=== PATIENT | male | born 1970 | race Hispanic/Latino ===

== ENCOUNTER → 2018-06-20 | Outpatient (CLI) | payer MEDICARE | END | disposition home or self-care (01) | LOC: RAH 08:25 | PROVIDERS: ATTEND Internal Medicine Cardiovascular Disease | DX: I11.9 Hypertensive heart disease without heart failure (principal); I31.3 Pericardial effusion (noninflammatory); Z94.0 Kidney transplant status | CPT/HCPCS: 93306 ==

== ENCOUNTER 2023-11-29 07:30 | Day surgery (SDC) | payer MEDICARE ==
[2023-11-27 09:55] LABS: HEMATOCRIT 33.2 % (42-54); MEAN CORPUSCULAR HEMOGLOBIN 31.1 pg (27.0-33.0); MEAN CORPUSCULAR HGB CONC 32.8 g/dL (32.0-36.0); MEAN CORPUSCULAR VOLUME 94.9 fL (79-99); RED BLOOD CELL COUNT(AUTO) 3.5 MIL/uL (4.50-6.20); RED CELL DISTRIBUTION WIDTH 14.3 % (11.0-15.5); WHITE BLOOD COUNT (AUTO) 5.9 K/uL (4.8-10.8)
[2023-11-27 09:57] VITALS: BP 175/82; PULSE 64; RESP 18
[2023-11-27 10:07] LABS: POTASSIUM 4.4 mmol/L (3.5-5.1)
[2023-11-27 10:09] LABS: CREATININE 9.4 mg/dL (0.5-1.3)
[2023-11-27 10:16] LABS: INR 1.01 (0.85-1.15); PROTHROMBIN TIME 11.9 SEC (9.6-11.6)
[2023-11-27 10:17] LABS: PARTIAL THROMBOPLASTIN TIME 27.7 SEC (26.3-35.5)
[2023-11-29] VITALS (20 sets, daily range): BP systolic 152–172; BP diastolic 71–81; PULSE 63–75; RESP 12–23
[~2023-11-29] VITALS: Ht 175.3 cm; Wt 103.0 kg
[~2023-11-29 07:30] MED LIST: AEC81 PO; ALBUHFA IH; FOLI1TAB85 PO; INSU500V SQ; LACT10SO5 PO; LORA10TA7 PO; METO-409 PO; NPH,100V SQ; PANT40TA54 PO; ROSU20TA73 PO; SEVE800T27 PO
[2023-11-29 08:10] LABS: CREATININE 6.7 mg/dL (0.5-1.3); POTASSIUM 4.6 mmol/L (3.5-5.1)
[2023-11-29] MEDS: CEFAZOLIN SODIUM 2 GM VIAL ONE (08:33)
[2023-11-29] MEDS: 0.9% NACL 500ML IV.SOLN 500 ML IV ONE (08:39)
[2023-11-29] MEDS ORDERED: FAMOTIDINE 20MG VIAL IV ONE (09:45)
[2023-11-29] MEDS ORDERED: ACETAMINOPHEN 1,000 MG/100 ML VIAL IV ONE (09:45)
[2023-11-29] MEDS ORDERED: LIDOCAINE PF 100MG/5ML (2%) SYRINGE 5ML ONE (09:47)
[2023-11-29] MEDS ORDERED: ROCURONIUM BROMIDE 10MG/1ML 5ML VL ONE (09:48)
[2023-11-29] MEDS ORDERED: FENTANYL CITRATE PF 50 MCG/1 ML 2ML VIAL ONE (09:48)
[2023-11-29] MEDS ORDERED: PROPOFOL 10 MG/ML 20ML VIAL IV ONE (09:48)
[2023-11-29] MEDS ORDERED: ONDANSETRON 4MG INJ ONE (10:44)
[2023-11-29] MEDS ORDERED: DEXAMETHASONE SOD PHOSPHATE 10MG/ML 1ML VIAL ONE (10:44)
[2023-11-29] MEDS: CEFAZOLIN SODIUM 1 GM VIAL ONE (11:02)
[2023-11-29] MEDS ORDERED: HEPARIN 10,000 UNIT/10ML (1,000 UNIT/ML) VIAL ONE (11:02)
[2023-11-29] MEDS ORDERED: EPHEDRINE SULFATE 50 MG/ML AMPULE ONE (11:20)
[2023-11-29] MEDS ORDERED: GLYCOPYRROLATE 0.2 MG/ML 5 ML VIAL ONE (11:49)
[2023-11-29] MEDS ORDERED: NEOSTIGMINE METHYLSULFATE 1MG/ML IV ONE (11:49)
[2023-11-29] MEDS ORDERED: PHENYLEPHRINE HCL 10 MG/ML 1ML VIAL IV ONE (12:16)
[2023-11-29] MEDS: HYDRALAZINE 20MG/ML VIAL ONE (13:18)
== END 2023-11-29 14:05 | disposition home or self-care (01) ==
LOC: DAH 07:30
PROVIDERS: ATTEND Thoracic Surgery (Cardiothoracic Vascular Surgery)
DX: I12.0 Hypertensive chronic kidney disease with stage 5 chronic kidney disease or end stage renal disease (principal); E11.22 Type 2 diabetes mellitus with diabetic chronic kidney disease; N18.6 End stage renal disease; M19.90 Unspecified osteoarthritis, unspecified site; Z99.2 Dependence on renal dialysis; Z79.4 Long term (current) use of insulin; Z79.82 Long term (current) use of aspirin; Z79.899 Other long term (current) drug therapy; Z82.49 Family history of ischemic heart disease and other diseases of the circulatory system; Z83.3 Family history of diabetes mellitus; Z83.79 Family history of other diseases of the digestive system; Z82.3 Family history of stroke; Z87.891 Personal history of nicotine dependence; Z86.73 Personal history of transient ischemic attack (TIA), and cerebral infarction without residual deficits; Z98.890 Other specified postprocedural states
CPT/HCPCS: 80048 ×2; 85027; 85610; 85730; 86850; 86900; 86901; 36415 ×2; 71045; 93005; 36821; 82948 ×2; A6260; A4663; J7040 ×2; J7030; C1757; J3490 ×4; J3010; J0690 ×2; J1100; J2001; J0360; J1644 ×2; J2704; J2405; J2710; J2371; A6219; A4649 ×6; A6251; C1713 ×2; A4930; A4215; A4223; A4213; A4222; A4221; A4600; G0168

== ENCOUNTER 2024-02-10 09:05 | Day surgery (SDC) | payer MEDICARE ==
[2024-02-07 11:48] LABS: HEMATOCRIT 33.2 % (42-54); MEAN CORPUSCULAR HEMOGLOBIN 31.1 pg (27.0-33.0); MEAN CORPUSCULAR HGB CONC 32.5 g/dL (32.0-36.0); MEAN CORPUSCULAR VOLUME 95.7 fL (79-99); RED BLOOD CELL COUNT(AUTO) 3.47 MIL/uL (4.50-6.20); RED CELL DISTRIBUTION WIDTH 14.3 % (11.0-15.5); WHITE BLOOD COUNT (AUTO) 7.1 K/uL (4.8-10.8)
[2024-02-07 11:56] VITALS: BP 156/75; PULSE 74; RESP 16
[2024-02-07 12:01] LABS: INR 1.14 (0.85-1.15); PROTHROMBIN TIME 12.2 SEC (9.6-11.6)
[2024-02-07 12:02] LABS: PARTIAL THROMBOPLASTIN TIME 27.9 SEC (26.3-35.5)
[2024-02-07 12:09] LABS: CREATININE 6.2 mg/dL (0.5-1.3); POTASSIUM 4.5 mmol/L (3.5-5.1)
[~2024-02-10] VITALS: Ht 175.3 cm; Wt 97.8 kg
[2024-02-10] VITALS (14 sets, daily range): BP systolic 123–166; BP diastolic 48–82; PULSE 61–65; RESP 14–20
[~2024-02-10 09:05] MED LIST changes: -LACT10SO5 PO; +LACT10SO9 PO; -LORA10TA7 PO; +ROPI0.2535 PO
[2024-02-10] MEDS ORDERED: ceFAZolin SODIUM 2 GM VIAL ONE (09:38)
[2024-02-10] MEDS ORDERED: ceFAZolin SODIUM 1 GM VIAL ONE (09:40)
[2024-02-10] MEDS ORDERED: HEParin-NS 1,000 UNIT/500 ML 500 ML IV ONE (09:40)
[2024-02-10] MEDS ORDERED: LIDOCAINE HCL 1% 20 ML VIAL ONE (09:40)
[2024-02-10 10:13] LABS: CREATININE 7.4 mg/dL (0.5-1.3); POTASSIUM 4.3 mmol/L (3.5-5.1)
[2024-02-10] MEDS ORDERED: GLYCOPYRROLATE 0.2 MG/ML 5 ML VIAL ONE (10:25)
[2024-02-10] MEDS ORDERED: ONDANSETRON 4MG INJ ONE (10:25)
[2024-02-10] MEDS ORDERED: rocuRONium bROMide 10MG/1ML 5ML VL ONE (10:26)
[2024-02-10] MEDS ORDERED: FENTanyl CITRate PF 50 MCG/1 ML 2ML VIAL ONE ×2 (10:26→11:58)
[2024-02-10] MEDS ORDERED: proPOFol 10 MG/ML 20ML VIAL IV ONE (10:26)
[2024-02-10] MEDS ORDERED: LIDOCAINE PF 100MG/5ML (2%) SYRINGE 5ML ONE (10:27)
[2024-02-10] MEDS: 0.9% NACL 500ML IV.SOLN 500 ML IV ONE (10:54)
[2024-02-10] MEDS: ceFAZolin SODIUM 2 GM VIAL IVPB ONE (11:00)
[2024-02-10] MEDS ORDERED: BUPIvacaine/PF 0.25% 30ML VIAL IJ ONE (11:13)
[2024-02-10] MEDS ORDERED: HEParin 10,000 UNIT/10ML (1,000 UNIT/ML) VIAL ONE (11:28)
[2024-02-10] MEDS ORDERED: PROTAMINE SULFATE 10 MG/ML 5 ML VIAL ONE ×2 (11:28→12:38)
[2024-02-10] MEDS ORDERED: NEOSTIGMINE METHYLSULFATE 1MG/ML IV ONE (12:40)
== END 2024-02-10 14:40 | disposition home or self-care (01) ==
LOC: DAH 09:05
PROVIDERS: ATTEND Thoracic Surgery (Cardiothoracic Vascular Surgery)
DX: I77.0 Arteriovenous fistula, acquired (principal); I12.0 Hypertensive chronic kidney disease with stage 5 chronic kidney disease or end stage renal disease; E11.22 Type 2 diabetes mellitus with diabetic chronic kidney disease; N18.6 End stage renal disease; J45.909 Unspecified asthma, uncomplicated; K21.9 Gastro-esophageal reflux disease without esophagitis; Z86.73 Personal history of transient ischemic attack (TIA), and cerebral infarction without residual deficits; M19.90 Unspecified osteoarthritis, unspecified site; Z79.899 Other long term (current) drug therapy
CPT/HCPCS: 80048 ×2; 85027; 85610; 85730; 86850 ×2; 86900 ×2; 86901 ×2; 36415 ×2; 71045; 93005; 36832; 82948 ×2; A6260; A4663; A6207; J7030; A4452; J7040; J3010 ×2; J0690 ×3; J0665 ×2; J3490 ×2; J2001; J2720 ×2; J1644 ×3; J2704; J2405; J2710; A6446; C9250; A4649 ×3; C1713 ×2; A4930 ×2; C1768; A4215; A4657; A4213; A4222; A4221; A4216; A4223 ×2; G0168